=== PATIENT | male | born 1980 | race African-American/Black ===

== ENCOUNTER 2021-01-01 16:43 | Emergency (ER) | payer MEDICAID ==
[2021-01-01] MEDS ORDERED: Sodium Chloride 0.9% 1,000 ML IV SCH (17:00)
[2021-01-01] MEDS ORDERED: Morphine 4 MG/ML VIAL IVPUSH STA (17:45)
[2021-01-01] MEDS ORDERED: Ondansetron 4 MG/2 ML SDV IVPUSH STA (17:45)
[2021-01-01] MEDS ORDERED: Iopamidol 755 Mg/ML 100 ML Bottle IV ONE (17:56)
[2021-01-01] MEDS ORDERED: Pantoprazole 40 MG Vial IVPUSH ONE (18:31)
--- NOTE | 2021-01-01 18:31 | EDM.PDOC ---
ED HPI GENERAL MEDICAL PROBLEM - General Chief Complaint: Gastrointestinal Problem Stated Complaint: VOMITING Time Seen by Provider: 01/01/21 16:45 Source of Information: Reports: Patient History Limitations: Reports: No Limitations - History of Present Illness INITIAL COMMENTS - FREE TEXT/NARRATIVE: Patient presented to the ED because of nausea and vomiting for 2 weeks and ab dominal pain over the LLQ and RLQ for 1-2 days. There is no associated fever, chills, changes in bowel movements or urinary symptoms. Denies having any melanotic stools or hematochezia. - Related Data Allergies Allergy/AdvReac Type Severity Reaction Status Date / Time No Known Allergies Allergy Verified 01/01/21 17:15 Home Meds: Home Meds . [Unable to Verify Home Med List] 02/20/16 [History] Past Medical History - Past Health History Medical/Surgical History: Denies Medical/Surgical History Gastrointestinal History: Reports: Other (See Below) Other Gastrointestinal History: Abdominal pain Social & Family History - Family History Family Medical History: No Pertinent Family History ED ROS GENERAL - Review of Systems Review Of Systems: See Below Constitutional: Reports: No Symptoms HEENT: Reports: No Symptoms Respiratory: Reports: No Symptoms Cardiovascular: Reports: No Symptoms Endocrine: Reports: No Symptoms GI/Abdominal: Reports: Nausea, Vomiting : Reports: No Symptoms Musculoskeletal: Reports: No Symptoms Skin: Reports: No Symptoms Neurological: Reports: No Symptoms Psychiatric: Reports: No Symptoms Hematologic/Lymphatic: Reports: No Symptoms ED EXAM, GI/ABD - Physical Exam Exam: See Below General Appearance: Alert, No Apparent Distress Ears: Normal External Exam, Normal Canal Nose: Normal Inspection, Normal Mucosa Throat/Mouth: Normal Inspection Head: Atraumatic, Normocephalic Neck: Normal Inspection, Supple, Non-Tender, Full Range of Motion Respiratory/Chest: No Respiratory Distress, Lungs Clear, Normal Breath Sounds Cardiovascular: Normal Peripheral Pulses, Regular Rate, Rhythm, No Edema GI/Abdominal Exam: Normal Bowel Sounds, Soft, Non-Tender, No Organomegaly Back Exam: Normal Inspection, Full Range of Motion Extremities: Normal Inspection, Normal Range of Motion, Non-Tender Neurological: Alert, Oriented, CN II-XII Intact, Normal Cognition Psychiatric: Normal Affect Course - Vital Signs Text/Narrative:: Lab result was reviewed and discussed with patient NS 1 L bolus Zofran 4 mg IV x1 dose Morphine 4 mg IV x1 Protonix 80 mg IV x1 - Orders/Labs/Meds Orders: Active Orders 24 hr Category Date Time Status Abdomen Pelvis w Cont [CT] Stat Exams 01/01/21 17:45 Taken Sodium Chloride 0.9% [Normal Saline] 1,000 ml Med 01/01/21 17:00 Active IV ASDIRECTED Medication Orders Sodium Chloride (Normal Saline) 1,000 mls @ 999 mls/hr IV ASDIRECTED SAURAV Last Admin: 01/01/21 18:00 Dose: 999 mls/hr Documented by: HELLEN Labs: Laboratory Tests 01/01/21 01/01/21 01/01/21 Range/Units 17:00 17:00 17:00 WBC 13.6 H (3.2-10.1) x10-3/uL RBC 4.56 (3.90-5.90) x10(6)uL Hgb 14.5 (12.9-17.7) g/dL Hct 43.1 (38.3-50.1) % MCV 94.6 (80.8-98.7) fL MCH 31.7 (27.0-33.3) pg MCHC 33.6 (28.7-35.3) g/dL RDW 13.1 (12.4-15.0) % Plt Count 256 (117-477) x10(3)uL MPV 8.5 (6.7-11.0) fL Neut % (Auto) 91.8 H (40.3-71.8) % Lymph % (Auto) 5.4 L (15.8-45.3) % [place] % (Auto) 2.6 L (5.5-15.2) % Eos % (Auto) 0.0 L (0.1-6.8) % Baso % (Auto) 0.2 L (0.3-3.8) % Neut # (Auto) 12.4 H (1.7-6.9) x10-3/uL Lymph # (Auto) 0.7 (0.5-4.5) x10-3/uL [place] # (Auto) 0.3 (0.0-1.2) x10-3/uL Eos # (Auto) 0.0 (0.0-0.6) x10-3/uL Baso # (Auto) 0.0 (0.0-0.3) x10-3/uL Sodium 140 (135-145) mmol/L Potassium 3.7 (3.5-5.3) mmol/L Chloride 103 (100-110) mmol/L Carbon Dioxide 25 (21-32) mmol/L BUN 16 (7-18) mg/dL Creatinine 1.4 H (0.70-1.30) mg/dL Est Cr Clr Drug Dosing TNP Estimated GFR (MDRD) > 60 (>60) BUN/Creatinine Ratio 11.4 (9-20) Glucose 129 H (80-116) mg/dL Calcium 9.0 (8.6-10.2) mg/dL Total Bilirubin 0.5 (0.1-1.3) mg/dL AST 21 (5-25) IU/L ALT 34 (12-36) U/L Alkaline Phosphatase 86 (56-112) IU/L Total Protein 8.2 H (6.0-8.0) g/dL Albumin 4.0 (3.5-5.2) g/dL Globulin 4.2 g/dL Albumin/Globulin Ratio 1.0 Amylase 56 (25-115) U/L Lipase 40 L (73-393) U/L Urine Color (YELLOW) Urine Appearance (CLEAR) Urine pH (5.0-6.5) Ur Specific [place] (1.010-1.025) Urine Protein (NEGATIVE) mg/dL Urine Glucose (UA) (NORMAL) mg/dL Urine Ketones (NEGATIVE) mg/dL Urine Occult Blood (NEGATIVE) Urine Nitrite (NEGATIVE) Urine Bilirubin (NEGATIVE) Urine Urobilinogen (NEGATIVE) mg/dL Ur Leukocyte Esterase (NEGATIVE) Urine RBC (0-5) Urine WBC (0-5) Ur Squamous Epith Cells (NS,R,O) Urine Bacteria (NS) Urine Opiates Screen (NEGATIVE) Ur Oxycodone Screen (NEGATIVE) Ur Propoxyphene Screen (NEGATIVE) Ur Barbituates Screen (NEGATIVE) Ur Tricyclics Screen (NEGATIVE) Ur Phencyclidine Scrn (NEGATIVE) Ur Amphetamine Screen (NEGATIVE) Urine MDMA Screen (NEGATIVE) U Benzodiazepines Scrn (NEGATIVE) U Cocaine Metab Screen (NEGATIVE) U Marijuana (THC) Screen (NEGATIVE) Ethyl Alcohol (<0.03) % 01/01/21 01/01/21 01/01/21 Range/Units 17:00 18:20 18:25 WBC (3.2-10.1) x10-3/uL RBC (3.90-5.90) x10(6)uL Hgb (12.9-17.7) g/dL Hct (38.3-50.1) % MCV (80.8-98.7) fL MCH (27.0-33.3) pg MCHC (28.7-35.3) g/dL RDW (12.4-15.0) % Plt Count (117-477) x10(3)uL MPV (6.7-11.0) fL Neut % (Auto) (40.3-71.8) % Lymph % (Auto) (15.8-45.3) % [place] % (Auto) (5.5-15.2) % Eos % (Auto) (0.1-6.8) % Baso % (Auto) (0.3-3.8) % Neut # (Auto) (1.7-6.9) x10-3/uL Lymph # (Auto) (0.5-4.5) x10-3/uL [place] # (Auto) (0.0-1.2) x10-3/uL Eos # (Auto) (0.0-0.6) x10-3/uL Baso # (Auto) (0.0-0.3) x10-3/uL Sodium (135-145) mmol/L Potassium (3.5-5.3) mmol/L Chloride (100-110) mmol/L Carbon Dioxide (21-32) mmol/L BUN (7-18) mg/dL Creatinine (0.70-1.30) mg/dL Est Cr Clr Drug Dosing Estimated GFR (MDRD) (>60) BUN/Creatinine Ratio (9-20) Glucose (80-116) mg/dL Calcium (8.6-10.2) mg/dL Total Bilirubin (0.1-1.3) mg/dL AST (5-25) IU/L ALT (12-36) U/L Alkaline Phosphatase (56-112) IU/L Total Protein (6.0-8.0) g/dL Albumin (3.5-5.2) g/dL Globulin g/dL Albumin/Globulin Ratio Amylase (25-115) U/L Lipase (73-393) U/L Urine Color Yellow (YELLOW) Urine Appearance Clear (CLEAR) Urine pH 9.0 H (5.0-6.5) Ur Specific [place] 1.015 (1.010-1.025) Urine Protein Negative (NEGATIVE) mg/dL Urine Glucose (UA) Normal (NORMAL) mg/dL Urine Ketones 15 H (NEGATIVE) mg/dL Urine Occult Blood Trace (NEGATIVE) Urine Nitrite Negative (NEGATIVE) Urine Bilirubin Negative (NEGATIVE) Urine Urobilinogen Normal (NEGATIVE) mg/dL Ur Leukocyte Esterase Negative (NEGATIVE) Urine RBC 0-5 (0-5) Urine WBC 0-5 (0-5) Ur Squamous Epith Cells Occasional (NS,R,O) Urine Bacteria Rare H (NS) Urine Opiates Screen Negative (NEGATIVE) Ur Oxycodone Screen Negative (NEGATIVE) Ur Propoxyphene Screen Negative (NEGATIVE) Ur Barbituates Screen Negative (NEGATIVE) Ur Tricyclics Screen Negative (NEGATIVE) Ur Phencyclidine Scrn Negative (NEGATIVE) Ur Amphetamine Screen Negative (NEGATIVE) Urine MDMA Screen Negative (NEGATIVE) U Benzodiazepines Scrn Positive H (NEGATIVE) U Cocaine Metab Screen Negative (NEGATIVE) U Marijuana (THC) Screen Positive H (NEGATIVE) Ethyl Alcohol < 0.03 (<0.03) % Meds: Medications Generic Name Dose Route Start Last Admin Trade Name Freq PRN Reason Stop Dose Admin Sodium Chloride 1,000 mls @ 999 mls/hr 01/01/21 17:00 01/01/21 18:00 Normal Saline IV 999 mls/hr ASDIRECTED SAURAV Administration Discontinued Medications Generic Name Dose Route Start Last Admin Trade Name Freq PRN Reason Stop Dose Admin Iopamidol 100 ml 01/01/21 17:56 01/01/21 18:12 Iopamidol 755 Mg/Ml 100 Ml Bottle IV 01/01/21 17:57 100 ml . DIRECTED ONE Administration Morphine Sulfate 4 mg 01/01/21 17:45 01/01/21 18:25 Morphine 4 Mg/Ml Vial IVPUSH 01/01/21 17:46 4 mg NOW STA Administration Ondansetron HCl 4 mg 01/01/21 17:45 01/01/21 18:00 Ondansetron 4 Mg/2 Ml Sdv IVPUSH 01/01/21 17:46 4 mg NOW STA Administration Pantoprazole Sodium 80 mg 01/01/21 18:31 Pantoprazole 40 Mg Vial IVPUSH 01/01/21 18:32 .BOLUS ONE Departure - Departure Time of Disposition: 17:00 Disposition: Home, Self-Care 01 Condition: Good Clinical Impression: GERD (gastroesophageal reflux disease), Nausea and vomiting - Discharge Information Instructions: Food Choices for Gastroesophageal Reflux Disease, Adult, Nausea and Vomiting, Adult, [id number], Gastroesophageal Reflux Disease, Adult, [id number] Forms: ED Department Discharge Additional Instructions: Please read discharge instructions on GERD and Nausea/Vomiting [place] diet Prilosec/omeprazole 20 mg daily Zofran ODT 4mg under your tongue every 4 hour s as needed for nausea Follow up as needed - My Orders Last 24 Hours: My Active Orders 01/01/21 17:00 Sodium Chloride 0.9% [Normal Saline] 1,000 ml IV ASDIRECTED 01/01/21 17:45 Abdomen Pelvis w Cont [CT] Stat - Assessment/Plan Last 24 Hours: My Active Orders 01/01/21 17:00 Sodium Chloride 0.9% [Normal Saline] 1,000 ml IV ASDIRECTED 01/01/21 17:45 Abdomen Pelvis w Cont [CT] Stat
[2021-01-02 08:32] VITALS: BP 158/80; PULSE 75
== END 2021-01-01 19:15 | disposition home or self-care (01) ==
LOC: FB.ED 16:43
DX: K21.9 Gastro-esophageal reflux disease without esophagitis (principal); R11.2 Nausea with vomiting, unspecified
CPT/HCPCS: 36415; 74177; 80053; 80305-QW; 80307; 81001; 82150; 83690; 85025; 96374; 96375; 99284; 99285-25; C9113; J2270; J2405; J7030; Q9967

== ENCOUNTER 2021-01-04 05:38 | Emergency (ER) | payer SELFPAY ==
[2021-01-04 05:56] VITALS: BP 173/89; PULSE 57
--- NOTE | 2021-01-04 06:06 | EDM.PDOC ---
ED HPI GENERAL MEDICAL PROBLEM - General Stated Complaint: ABDOMINAL PAIN Time Seen by Provider: 01/04/21 06:00 Source of Information: Reports: Patient History Limitations: Reports: No Limitations - History of Present Illness INITIAL COMMENTS - FREE TEXT/NARRATIVE: pt c/o recurrent epigastric discomfort , heart sommers and HAs over the past week, denies any other associated sx, was seen for this on Wednesday and was diagnosed with GERD by dr Baker , pt has not been taking his prescribed prilosec nor zofran for no explained reasons , pt continue the above sx. with regards to the HAs tells me is pain on right side of [place] that he gets every now and then for years, denies any new sx or any other associated sx or concerns. Abdomen Pain Score (Numeric/FACES): 7 - Related Data Allergies Allergy/AdvReac Type Severity Reaction Status Date / Time No Known Allergies Allergy Verified 01/01/21 17:15 Home Meds: Home Meds Omeprazole 20 mg PO DAILY #60 cap.cr 01/01/21 [Rx] Ondansetron [Zofran ODT] 4 mg PO Q4H PRN #7 tab.dis 01/01/21 [Rx] Past Medical History - Past Health History Medical/Surgical History: Denies Medical/Surgical History Gastrointestinal History: Reports: Other (See Below) Other Gastrointestinal History: Abdominal pain Social & Family History - Family History Family Medical History: No Pertinent Family History ED ROS GENERAL - Review of Systems Review Of Systems: See Below Constitutional: Reports: No Symptoms HEENT: Reports: No Symptoms Respiratory: Reports: No Symptoms Cardiovascular: Reports: No Symptoms GI/Abdominal: Reports: Abdominal Pain. Denies: Black Stool, Bloody Stool, Constipation, Diarrhea, Hematemesis, Hematochezia, Melena Musculoskeletal: Reports: No Symptoms Skin: Reports: No Symptoms Neurological: Reports: Headache. Denies: Numbness, Paresthesia, Trouble Speaking, Difficulty Walking Psychiatric: Reports: No Symptoms Hematologic/Lymphatic: Reports: No Symptoms ED EXAM, GENERAL - Physical Exam Exam: See Below Exam Limited By: No Limitations General Appearance: Anxious, Mild Distress Eye Exam: Bilateral Eye: Normal Inspection Ears: Normal External Exam, Normal Canal Nose: Normal Inspection Throat/Mouth: Normal Inspection, Normal Oropharynx Neck: Normal Inspection, Supple, Non-Tender Respiratory/Chest: No Respiratory Distress, Lungs Clear, Normal Breath Sounds Cardiovascular: Normal Peripheral Pulses, Regular Rate, Rhythm GI/Abdominal: Normal Bowel Sounds, Soft, Non-Tender Back Exam: Normal Inspection Extremities: Normal Inspection, Normal Range of Motion Neurological: Alert, Oriented, CN II-XII Intact Psychiatric: Normal Affect Course - Vital Signs Text/Narrative:: pt has GERD/ gastritis, and chronic recurrent HAs , was given Gi cocktail here also Phenergan and toradol, was asked to resume recently prescribed medications by Dr baker and follow with PCP this comming week. Last Recorded V/S: Last Vital Signs Temp 37.1 C 01/04/21 05:54 Pulse 57 L 01/04/21 05:54 Resp 22 H 01/04/21 05:54 BP 173/89 H 01/04/21 05:54 Pulse Ox 98 01/04/21 05:54 Departure - Departure Time of Disposition: 06:09 Disposition: Home, Self-Care 01 Clinical Impression: Gastritis - Discharge Information Referrals: PCP,None [Primary Care Provider] - Sepsis Event Note (ED) - Evaluation Sepsis Screening Result: No Definite Risk - Focused Exam Vital Signs: Vital Signs Temp Pulse Resp BP Pulse Ox 01/04/21 05:54 37.1 C 57 L 22 H 173/89 H 98
[2021-01-04] MEDS ORDERED: Alum Hydroxide/Mag Hydroxide 15 ML, Lidocaine 2% 15 ML PO ONE ×2 (06:11)
[2021-01-04] MEDS ORDERED: Promethazine 25 MG/ML SDV IM ONE (06:11)
[2021-01-04] MEDS ORDERED: Ketorolac 30 MG/ML SDV IM ONE (06:11)
== END 2021-01-04 06:43 | disposition home or self-care (01) ==
LOC: FB.ED 05:38
DX: K29.70 Gastritis, unspecified, without bleeding (principal); Z79.899 Other long term (current) drug therapy
CPT/HCPCS: 96372; 99284; A9270; J1885; J2550

== ENCOUNTER 2022-11-29 17:53 | Emergency (ER) | payer OTHER ==
[2022-11-29] MEDS ORDERED: Erythromycin Base 0.5% Ophth Oint 3.5 GM Tube EYEBOTH ONE (17:54)
[2022-11-29 18:16] VITALS: PULSE 64
[2022-11-29 19:24] VITALS: BP 133/96
== END 2022-11-29 19:02 | disposition home or self-care (01) ==
LOC: FB.ED 17:53
DX: S00.211A Abrasion of right eyelid and periocular area, initial encounter (principal); Z72.0 Tobacco use; W22.09XA Striking against other stationary object, initial encounter
CPT/HCPCS: 99283; A9270

== ENCOUNTER 2023-08-25 09:23 | Emergency (ER) | payer SELFPAY ==
[2023-08-25] MEDS ORDERED: amLODIPine 5 MG Tab PO ONE (10:08)
[2023-08-25 10:47] VITALS: BP 161/116; PULSE 80
== END 2023-08-25 10:13 | disposition home or self-care (01) ==
LOC: FB.ED 09:23
DX: J06.9 Acute upper respiratory infection, unspecified (principal); R03.0 Elevated blood-pressure reading, without diagnosis of hypertension
CPT/HCPCS: 99283

== ENCOUNTER 2023-11-22 22:51 | Emergency (ER) | payer MEDICAID ==
[2023-11-22] MEDS ORDERED: Sodium Chloride 0.9% 10 ML Syringe FLUSH PRN (22:59)
[2023-11-22] MEDS ORDERED: Ondansetron 4 MG/2 ML SDV IVPUSH ONE (23:02)
[2023-11-22] MEDS ORDERED: Morphine 4 MG/ML VIAL IVPUSH ONE (23:02)
[2023-11-23 00:19] LABS: HEMATOCRIT 45.2 % (38.3-50.1); MEAN CORPUSCULAR HEMOGLOBIN 31.6 pg (27.0-33.3); MEAN CORPUSCULAR HGB CONC 33.2 g/dL (28.7-35.3); MEAN PLATELET VOLUME 8.4 fL (6.7-11.0); PLATELET COUNT,PLT 259 x10(3)uL (117-477); RED BLOOD CELL COUNT 4.75 x10(6)uL (3.90-5.90); RED CELL DISTRIBUTION WIDTH 13.3 % (12.4-15.0); WHITE BLOOD CELL COUNT,WBC 11.4 x10-3/uL (3.2-10.1)
[2023-11-23 00:23] LABS: BLOOD UREA NITROGEN,BUN 16 mg/dL (7-18); BUN/CREATININE RATIO 14.5 (9-20); CALCIUM 9.7 mg/dL (8.6-10.2); CARBON DIOXIDE,CO2 27 mmol/L (21-32); CHLORIDE,CL 100 mmol/L (100-110); CREATININE 1.1 mg/dL (0.70-1.30); EST CRCL DRUG DOSING (CG) 74.55 mL/min; ESTIMATED GFR 85 mL/min (>60); GLUCOSE RANDOM 144 mg/dL (80-116); POTASSIUM,K 3.4 mmol/L (3.5-5.3); SODIUM,NA 139 mmol/L (135-145)
[2023-11-23 00:29] LABS: ALANINE AMINOTRANSFERASE,ALT 27 U/L (12-36); ALKALINE PHOSPHATASE 106 IU/L (56-112); AMYLASE 67 U/L (25-115); ASPARTATE AMNIOTRANSFERASE,AST 22 IU/L (5-25); BILIRUBIN TOTAL 0.7 mg/dL (0.1-1.3); PROTEIN TOTAL,TP 8.1 g/dL (6.0-8.0)
[2023-11-23 00:30] LABS: BAND PERCENT MAN 4 % (0-6); LYMPHOCYTES PERCENT MAN 12 % (13-37); MONOCYTES PERCENT MAN 7 % (4-12); SEG NEUTROPHILS PERCENT MAN 77 % (46-82)
[2023-11-23] MEDS: Hydrocortisone Sodium Succinate 100 MG/2 ML SDV IVPUSH ONE (01:35)
[2023-11-23] MEDS: Sodium Chloride 0.9% 1,000 ML IV SCH (01:50)
[2023-11-23] MEDS: Morphine 4 MG/ML VIAL IVPUSH ONE (01:50)
[2023-11-23] MEDS: Ondansetron 4 MG/2 ML SDV IVPUSH ONE (01:50)
[2023-11-23] MEDS: Iopamidol 755 Mg/ML 100 ML Bottle IV SCH (02:16)
[2023-11-23 02:20] LABS: BILIRUBIN,URINE NEGATIVE (NEGATIVE); GLUCOSE,URINE NORMAL (NORMAL); KETONES,URINE 15 mg/dL (NEGATIVE); LEUKOCYTE ESTERASE,URINE NEGATIVE (NEGATIVE); NITRITE,URINE NEGATIVE (NEGATIVE); OCCULT BLOOD,URINE MODERATE (NEGATIVE); PROTEIN,URINE TRACE mg/dL (NEGATIVE); UROBILINOGEN,URINE NORMAL (NEGATIVE)
[2023-11-23] MEDS: LORazepam 2 MG/ML SDV IVPUSH ONE (02:20)
[2023-11-23 02:22] LABS: APPEARANCE,URINE CLEAR (CLEAR); BACTERIA,URINE OCCASIONAL (NS); COLOR,URINE YELLOW (YELLOW); RBC,URINE 0-5 (0-5); SQUAMOUS EPITHELIAL CELLS,UR OCCASIONAL (NS,R,O); WBC,URINE 0-5 (0-5)
[2023-11-23 02:31] VITALS: BP 143/81; PULSE 65
[2023-11-23] MEDS ORDERED: Potassium Chloride 20 MEQ Tab.ER PO ONE (02:45)
== END 2023-11-23 03:00 | disposition home or self-care (01) ==
LOC: FB.ED 22:51
DX: K21.9 Gastro-esophageal reflux disease without esophagitis (principal); K29.70 Gastritis, unspecified, without bleeding; Z79.899 Other long term (current) drug therapy
CPT/HCPCS: 36415; 74177; 80053; 81001; 82150; 83690; 85025; 96361; 96374; 96375; 99284; 99284-25; J2060; J2270; J2405; J7030; Q9967

== ENCOUNTER 2024-04-06 11:16 | Emergency (ER) | payer MEDICAID, OTHER ==
[2024-04-06] MEDS ORDERED: Sodium Chloride 0.9% 10 ML Syringe FLUSH PRN (11:36)
[2024-04-06] MEDS: Sodium Chloride 0.9% 1,000 ML IV SCH (12:22)
[2024-04-06] MEDS: Ondansetron 4 MG/2 ML SDV IVPUSH ONE (12:22)
[2024-04-06] MEDS: Ondansetron 4 MG/2 ML SDV ONE (12:23)
[2024-04-06 12:30] LABS: HEMATOCRIT 45.3 % (38.3-50.1); HEMOGLOBIN 15.3 g/dL (12.9-17.7); MEAN CORPUSCULAR HEMOGLOBIN 31.8 pg (27.0-33.3); MEAN CORPUSCULAR HGB CONC 33.8 g/dL (28.7-35.3); MEAN CORPUSCULAR VOLUME 94.1 fL (80.8-98.7); MEAN PLATELET VOLUME 8.8 fL (6.7-11.0); PLATELET COUNT,PLT 222 x10(3)uL (117-477); RED BLOOD CELL COUNT 4.81 x10(6)uL (3.90-5.90); RED CELL DISTRIBUTION WIDTH 12.9 % (12.4-15.0); WHITE BLOOD CELL COUNT,WBC 9.7 x10-3/uL (3.2-10.1)
[2024-04-06] MEDS: Ketorolac 30 MG/ML SDV IVPUSH ONE (12:30)
[2024-04-06] MEDS: Ketorolac 30 MG/ML SDV IM ONE (12:31)
[2024-04-06 12:36] LABS: BLOOD UREA NITROGEN,BUN 12 mg/dL (7-18); CALCIUM 9.4 mg/dL (8.6-10.2); CARBON DIOXIDE,CO2 26 mmol/L (21-32); CHLORIDE,CL 102 mmol/L (100-110); CREATININE 1.2 mg/dL (0.70-1.30); EST CRCL DRUG DOSING (CG) 67.62 mL/min; ESTIMATED GFR 76 mL/min (>60); GLUCOSE RANDOM 148 mg/dL (80-116); POTASSIUM,K 3.7 mmol/L (3.5-5.3); SODIUM,NA 140 mmol/L (135-145)
[2024-04-06 12:41] LABS: ALANINE AMINOTRANSFERASE,ALT 23 U/L (12-36); ALKALINE PHOSPHATASE 100 IU/L (56-112); ASPARTATE AMNIOTRANSFERASE,AST 23 IU/L (5-25); BILIRUBIN TOTAL 0.8 mg/dL (0.1-1.3); PROTEIN TOTAL,TP 7.9 g/dL (6.0-8.0)
[2024-04-06 12:45] LABS: HEMOGLOBIN A1C 5.7 % (<5.7)
[2024-04-06] MEDS ORDERED: Naloxone 0.4 MG/ML SDV IVPUSH PRN (12:50)
[2024-04-06 12:52] LABS: LYMPHOCYTES PERCENT MAN 9 % (13-37); MONOCYTES PERCENT MAN 4 % (4-12); SEG NEUTROPHILS PERCENT MAN 87 % (46-82)
[2024-04-06] MEDS: HYDROmorphone 2 MG/ML SDV IVPUSH ONE (13:03)
[2024-04-06 13:10] LABS: APPEARANCE,URINE CLEAR (CLEAR); BACTERIA,URINE FEW (NS); BILIRUBIN,URINE NEGATIVE (NEGATIVE); COLOR,URINE YELLOW (YELLOW); GLUCOSE,URINE NORMAL (NORMAL); KETONES,URINE 15 mg/dL (NEGATIVE); LEUKOCYTE ESTERASE,URINE NEGATIVE (NEGATIVE); NITRITE,URINE NEGATIVE (NEGATIVE); OCCULT BLOOD,URINE NEGATIVE (NEGATIVE); PROTEIN,URINE NEGATIVE (NEGATIVE); RBC,URINE 0-5 (0-5); SQUAMOUS EPITHELIAL CELLS,UR FEW (NS,R,O); UROBILINOGEN,URINE NORMAL (NEGATIVE); WBC,URINE 0-5 (0-5)
[2024-04-06 13:14] LABS: AMPHETAMINES SCREEN, URINE NEGATIVE (NEGATIVE); BARBITURATE SCREEN,URINE NEGATIVE (NEGATIVE); BENZODIAZEPINES SCREEN,URINE NEGATIVE (NEGATIVE); BUPRENORPHINE SCREEN,URINE NEGATIVE (NEGATIVE); METHADONE SCREEN, URINE NEGATIVE (NEGATIVE); METHAMPHETAMINE SCREEN, URINE NEGATIVE (NEGATIVE); OXYCODONE SCREEN,URINE NEGATIVE (NEGATIVE); THC SCREEN,URINE POSITIVE (NEGATIVE)
[2024-04-06 15:07] VITALS: BP 180/102
[2024-04-06] MEDS: amLODIPine 10 MG Tab PO ONE (15:07)
[2024-04-06 15:50] VITALS: PULSE 62
== END 2024-04-06 15:18 | disposition home or self-care (01) ==
LOC: FB.ED 11:16
DX: R10.31 Right lower quadrant pain (principal); R11.2 Nausea with vomiting, unspecified; I10 Essential (primary) hypertension; F14.10 Cocaine abuse, uncomplicated; F12.10 Cannabis abuse, uncomplicated; Z90.49 Acquired absence of other specified parts of digestive tract
CPT/HCPCS: 36415; 80053; 80307; 81001; 83036; 83605; 83690; 85025; 86140; 96361; 96372; 96374; 96375; 99284; A9270; J1170; J1885; J2405; J7030; 36410